=== PATIENT | female | born 1995 | race Caucasian/White ===

== ENCOUNTER 2020-01-16 01:57 | Inpatient (IN) | payer BC ==
[2020-01-16] MEDS ORDERED: Nalbuphine 10 MG/ML Syringe IVPUSH PRN (02:21)
[2020-01-16] MEDS ORDERED: Sodium Chloride 0.9% 10 ML Syringe FLUSH PRN (02:21)
[2020-01-16] MEDS ORDERED: Calcium Carbonate 500 MG Tab.Chew PO PRN (02:21)
[2020-01-16] MEDS ORDERED: Ondansetron 4 MG/2 ML SDV IVPUSH PRN (02:21)
[2020-01-16] MEDS ORDERED: Lidocaine 1% 50 ML MDV INJECT ONE (02:21)
[2020-01-16] MEDS ORDERED: Lactated Ringers 1,000 ML IV SCH (02:30)
[2020-01-16] MEDS ORDERED: Oxytocin/Lactated Ringers 10 UNIT/1,000 ML BAG IV SCH (02:30)
[2020-01-16] MEDS ORDERED: Lidocaine 1% 50 ML MDV ONE (07:06)
--- NOTE | 2020-01-16 07:16 | PCM.LDHP ---
L&D History of Present Illness - General Date of Service: 01/16/20 Admit Problem/Dx: Patient Status Order with Admit Dx/Problem 01/16/20 02:13 Patient Status [ADT] Routine 01/16/20 02:21 Patient Status [ADT] Routine Admission Diagnosis/Problem Admission Diagnosis/Problem Active labor Source of Information: Patient History Limitations: Reports: No Limitations - History of Present Illness Introduction:: Patient is a 24 y/o at 40 2/7 wks who presented early this AM in labor. When first admitted was 5 cm. Currently about 9 cm dilated. Doing well. - Related Data Allergies/Adverse Reactions: Allergies Allergy/AdvReac Type Severity Reaction Status Date / Time Latex, Natural Rubber Allergy Rash Verified 01/16/20 04:10 Home Medications: Home Meds Acetaminophen [Tylenol] 325 mg PO Q4H PRN 01/16/20 [History] Calcium Carbonate [Tums] 500 mg PO Q2HR PRN 01/16/20 [History] No122/Iron/Folic Acid [ Multi Tablet] 1 each PO DAILY 01/16/20 [History] Past Medical History HEENT History: Reports: Other (See Below) Other HEENT History: Wears glasses occasionally Respiratory History: Reports: Asthma Gastrointestinal History: Reports: [employer] History: Reports: , Spontaneous : 2 Para: 0 LMP (Approximate): Neurological History: Reports: Migraines - Past Surgical History HEENT Surgical History: Reports: Adenoidectomy, Tonsillectomy, Other (See Below) Other HEENT Surgeries/Procedures: Nasal polyp excision Social & Family History - Family History Family Medical History: Noncontributory - Tobacco Use Smoking Status *Q: Never Smoker - Alcohol Use Alcohol Use History: No - Recreational Drug Use Recreational Drug Use: No H&P Review of Systems - Review of Systems: Review Of Systems: See Below General: Reports: No Symptoms Pulmonary: Reports: No Symptoms Cardiovascular: Reports: No Symptoms Gastrointestinal: Reports: No Symptoms Genitourinary: Reports: No Symptoms Musculoskeletal: Reports: No Symptoms Psychiatric: Reports: No Symptoms Neurological: Reports: No Symptoms L&D Exam - Exam Exam: See Below - Vital Signs Vital Signs: Last Vital Signs Temp 37.0 C 01/16/20 02:13 Pulse 86 01/16/20 02:13 Resp 16 01/16/20 02:13 BP 127/78 01/16/20 02:13 Pulse Ox 100 01/16/20 02:13 Weight: 80.059 kg - OB Specific Contraction Intensity: Moderate to Strong Movement: Active Heart Tones: Present Heart Tones per Min: 130 Heart Rate (FHR) Variability: Moderate (6-25 bmp) Presentation: Vertex - Felix Score Felix Score Cervix Position: Anterior Felix Score Consistency: Soft Felix Score Effacement: >80% Felix Score Dilation: > 5 cm Felix Score 's Station: -1 ,0 Felix Score Total: 12 - Exam General: Alert, Oriented, Cooperative Lungs: Clear to Auscultation, Normal Respiratory Effort Cardiovascular: Regular Rate, Regular Rhythm GI/Abdominal Exam: Soft, Non-Tender Genitourinary: Normal external exam Skin: Warm, Dry, Intact - Patient Data Lab Results Last 24 hrs: Laboratory Results - last 24 hr 01/16/20 Range/Units 03:11 WBC 16.78 H (3.98-10.04) K/mm3 RBC 4.24 (3.98-5.22) M/mm3 Hgb 13.6 (11.2-15.7) gm/dl Hct 39.1 (34.1-44.9) % MCV 92.2 (79.4-94.8) fl MCH 32.1 (25.6-32.2) pg MCHC 34.8 (32.2-35.5) g/dl RDW Std Deviation 42.6 (36.4-46.3) fL Plt Count 185 (182-369) K/mm3 MPV 10.5 (9.4-12.3) fl Neut % (Auto) 83.6 H (34.0-71.1) % Lymph % (Auto) 10.3 L (19.3-51.7) % [place] % (Auto) 5.4 (4.7-12.5) % Eos % (Auto) 0.2 L (0.7-5.8) Baso % (Auto) 0.1 (0.1-1.2) % Neut # (Auto) 14.03 H (1.56-6.13) K/mm3 Lymph # (Auto) 1.73 (1.18-3.74) K/mm3 [place] # (Auto) 0.90 H (0.24-0.36) K/mm3 Eos # (Auto) 0.04 (0.04-0.36) K/mm3 Baso # (Auto) 0.01 (0.01-0.08) K/mm3 Result Diagrams: 01/16/20 03:11 - Problem List (1) 40 weeks gestation of SNOMED Code(s): 80279691 ICD Code: Z3A.40 - 40 WEEKS GESTATION OF Status: Acute Current Visit: Yes (2) Normal labor SNOMED Code(s): 15873623 ICD Code: O80 - ENCOUNTER FOR FULL-TERM UNCOMPLICATED DELIVERY; Z37.9 - OUTCOME OF DELIVERY, UNSPECIFIED Status: Acute Current Visit: Yes Problem List Initiated/Reviewed/Updated: Yes Orders Last 24hrs: Active Orders 24 hr Category Date Time Status Patient Status [ADT] Routine ADT 01/16/20 02:21 Active Activity as Tolerated [RC] PFP Care 01/16/20 02:21 Active Communication Order [RC] ASDIRECTED Care 01/16/20 02:21 Active Heart Tones [RC] ASDIRECTED Care 01/16/20 02:21 Active Notify Provider [RC] PFP Care 01/16/20 02:21 Active Notify Provider [RC] PRN Care 01/16/20 02:21 Active Peripheral IV Care [RC] Q2HR Care 01/16/20 02:21 Active Pump Management, Intrathecal [RC] ASDIRECTED Care 01/16/20 02:21 Active Up ad Makayla [RC] ASDIRECTED Care 01/16/20 02:14 Active Urinary Catheter Assessment [RC] ASDIRECTED Care 01/16/20 02:21 Active Regular Diet [DIET] Diet 01/16/20 Breakfast Active BLOOD BANK HOLD SPECIMEN [BBK] Stat Lab 01/16/20 02:21 Ordered RAPID PLASMA REAGIN,RPR [CHEM] Stat Lab 01/16/20 03:11 Received Calcium Carbonate [Tums] Med 01/16/20 02:21 Active 1,000 mg PO Q2H PRN Lactated Ringers [Ringers, Lactated] 1,000 ml Med 01/16/20 02:30 Active IV ASDIRECTED Nalbuphine [Nubain] Med 01/16/20 02:21 Active 10 mg IVPUSH Q2H PRN Ondansetron [Zofran] Med 01/16/20 02:21 Active 4 mg IVPUSH Q4H PRN Oxytocin/Lactated Ringers [Pitocin in LR 10 Units/1,000 Med 01/16/20 02:30 Active ML] 10 unit in 1,000 ml IV .CONTINUOUS Sodium Chloride 0.9% [Saline Flush] Med 01/16/20 02:21 Active 10 ml FLUSH ASDIRECTED PRN Electronic Heart Tones Ext w TOCO [WOMSER] Oth 01/16/20 02:21 Ordered Routine Electronic Heart Tones Internal [WOMSER] Per Unit Ot 01/16/20 02:21 Ordered Routine Peripheral IV Insertion Adult [OM.PC] Routine Oth 01/16/20 02:21 Ordered Resuscitation Status Routine Resus Stat 01/16/20 02:13 Ordered Medication Orders Calcium Carbonate/Glycine (Tums) 1,000 mg PO Q2H PRN PRN Reason: Indigestion Lactated Ringer's (Ringers, Lactated) 1,000 mls @ 100 mls/hr IV ASDIRECTED NADIRA Oxytocin/Lactated Ringer's (Pitocin In Lr 10 Units/1,000 Ml) 10 unit in 1,000 mls @ 500 mls/hr IV .CONTINUOUS NADIRA Nalbuphine HCl (Nubain) 10 mg IVPUSH Q2H PRN PRN Reason: Pain Ondansetron HCl (Zofran) 4 mg IVPUSH Q4H PRN PRN Reason: Nausea/Vomiting Sodium Chloride (Saline Flush) 10 ml FLUSH ASDIRECTED PRN PRN Reason: Keep Vein Open Assessment/Plan Comment:: * Labs previously done * GBS negative * Currently 9 cm dilated, AROM done * Plans unmedicated delivery * Anticipate
[2020-01-16] MEDS ORDERED: ePHEDrine 50 MG/ML SDV IVPUSH PRN (07:22)
[2020-01-16] MEDS ORDERED: fentaNYL 100 MCG/2 ML SDV EPIDUR PRN (07:22)
--- NOTE | 2020-01-16 07:24 | PCM.PREANE ---
Preanesthetic Assessment - Anesthesia/Transfusion/Family Hx Anesthesia History: Prior Anesthesia Without Reaction Family History of Anesthesia Reaction: No Transfusion History: No Prior Transfusion(s) Intubation History: Unknown - Review of Systems Pulmonary: No Symptoms (History of asthma) Gastrointestinal: No Symptoms (GERD) Neurological: Headache (History of migraines) - Physical Assessment NPO Status Date: 01/16/20 Vital Signs: Last Vital Signs Temp 37.0 C 01/16/20 02:13 Pulse 86 01/16/20 02:13 Resp 16 01/16/20 02:13 BP 127/78 01/16/20 02:13 Pulse Ox 100 01/16/20 02:13 Height: 1.65 m Weight: 80.059 kg ASA Class: 2 Mental Status: Alert & Oriented x3 - Lab Values: Laboratory Last Values WBC 16.78 K/mm3 (3.98-10.04) H 01/16/20 03:11 RBC 4.24 M/mm3 (3.98-5.22) 01/16/20 03:11 Hgb 13.6 gm/dl (11.2-15.7) 01/16/20 03:11 Hct 39.1 % (34.1-44.9) 01/16/20 03:11 MCV 92.2 fl (79.4-94.8) 01/16/20 03:11 MCH 32.1 pg (25.6-32.2) 01/16/20 03:11 MCHC 34.8 g/dl (32.2-35.5) 01/16/20 03:11 RDW Std Deviation 42.6 fL (36.4-46.3) 01/16/20 03:11 Plt Count 185 K/mm3 (182-369) 01/16/20 03:11 MPV 10.5 fl (9.4-12.3) 01/16/20 03:11 Neut % (Auto) 83.6 % (34.0-71.1) H 01/16/20 03:11 Lymph % (Auto) 10.3 % (19.3-51.7) L 01/16/20 03:11 [place] % (Auto) 5.4 % (4.7-12.5) 01/16/20 03:11 Eos % (Auto) 0.2 (0.7-5.8) L 01/16/20 03:11 Baso % (Auto) 0.1 % (0.1-1.2) 01/16/20 03:11 Neut # (Auto) 14.03 K/mm3 (1.56-6.13) H 01/16/20 03:11 Lymph # (Auto) 1.73 K/mm3 (1.18-3.74) 01/16/20 03:11 [place] # (Auto) 0.90 K/mm3 (0.24-0.36) H 01/16/20 03:11 Eos # (Auto) 0.04 K/mm3 (0.04-0.36) 01/16/20 03:11 Baso # (Auto) 0.01 K/mm3 (0.01-0.08) 01/16/20 03:11 Above labs reviewed and noted and within acceptable ranges to proceed with epidural if patient desires. - Allergies Allergies/Adverse Reactions: Allergies Allergy/AdvReac Type Severity Reaction Status Date / Time Latex, Natural Rubber Allergy Rash Verified 01/16/20 04:10 - Anesthesia Plan Pre-Op Medication Ordered: None - Acknowledgements Anesthesia Type Planned: Epidural Pt an Appropriate Candidate for the Planned Anesthesia: Yes Alternatives and Risks of Anesthesia Discussed w Pt/Guardian: Yes Pt/Guardian Understands and Agrees with Anesthesia Plan: Yes PreAnesthesia Questionnaire HEENT History: Reports: Other (See Below) Other HEENT History: Wears glasses occasionally Respiratory History: Reports: Asthma Gastrointestinal History: Reports: GERD, Other (See Below) Other Gastrointestinal History: Multiple food intolerances [employer]ET[employer] V[employer]IST History: Reports: , Spontaneous Neurological History: Reports: Migraines - Past Surgical History HEENT Surgical History: Reports: Adenoidectomy, Tonsillectomy, Other (See Below) Other HEENT Surgeries/Procedures: Nasal polyp excision - SUBSTANCE USE Smoking Status *Q: Never Smoker Recreational Drug Use History: No - HOME MEDS Home Medications: Home Meds Acetaminophen [Tylenol] 325 mg PO Q4H PRN 01/16/20 [History] Calcium Carbonate [Tums] 500 mg PO Q2HR PRN 01/16/20 [History] No122/Iron/Folic Acid [ Multi Tablet] 1 each PO DAILY 01/16/20 [History] - CURRENT (IN HOUSE) MEDS Current Meds: Current Medications Calcium Carbonate/Glycine (Tums) 1,000 mg PO Q2H PRN PRN Reason: Indigestion Lactated Ringer's (Ringers, Lactated) 1,000 mls @ 100 mls/hr IV ASDIRECTED NADIRA Oxytocin/Lactated Ringer's (Pitocin In Lr 10 Units/1,000 Ml) 10 unit in 1,000 mls @ 500 mls/hr IV .CONTINUOUS NADIRA Nalbuphine HCl (Nubain) 10 mg IVPUSH Q2H PRN PRN Reason: Pain Ondansetron HCl (Zofran) 4 mg IVPUSH Q4H PRN PRN Reason: Nausea/Vomiting Sodium Chloride (Saline Flush) 10 ml FLUSH ASDIRECTED PRN PRN Reason: Keep Vein Open Discontinued Medications Lidocaine HCl (Xylocaine 1%) 20 ml INJECT ONETIME ONE Stop: 01/16/20 02:22 Lidocaine HCl (Xylocaine 1%) Confirm Administered Dose 50 ml .ROUTE .K-MED ONE Stop: 01/16/20 07:07
[2020-01-16] MEDS ORDERED: Bupivacaine/fentaNYL/NS 100 ML Bag EPIDUR SCH (07:30)
--- NOTE | 2020-01-16 11:36 | PCM.DEL ---
L & D Note - General Info Date of Service: 01/16/20 - Delivery Note Labor: Spontaneous Delivery Outcome: Livebirth Delivery Method: Spontaneous Vaginal Delivery-Single Delivery Mode: Spontaneous Presentation: Right Occiput Anterior (MARII) Nuchal Cord: None Anesthesia Type: None Amniotic Fluid Description: Clear Episiotomy Type: None Laceration: 1st Degree (not bleeding and so not repaired ) Suture type: Vicryl Suture size: 2-0 Placenta: Intact, Spontaneous Cord: 3 Vessels Estimated Blood Loss: 300 Resuscitation Needed: Yes [place]: Bulb Syringe, Stimulated, Warmed, [place] Used Delivery Comments (Free Text/Narrative):: Patient found to be complete and began pushing. With maternal pushing effort head delivered from MARII presentation. No nuchal cord present. With gentle downward traction shoulders and body delivered. Cord clamped and cut. Cord blood obtained. Placenta allowed time to separate and expelled intact. Inspection of the perineum showed a shallow 1st degree laceration which was hemostatic and so not repaired - General Info Date of Service: 01/16/20 - Patient Data Vitals - Most Recent: Last Vital Signs Temp 37.0 C 01/16/20 02:13 Pulse 86 01/16/20 02:13 Resp 16 01/16/20 02:13 BP 127/78 01/16/20 02:13 Pulse Ox 100 01/16/20 02:13 Weight - Most Recent: 80.059 kg - Problem List & Annotations (1) 40 weeks gestation of SNOMED Code(s): 17615576 Code(s): Z3A.40 - 40 WEEKS GESTATION OF Status: Acute Current Visit: Yes (2) Normal labor SNOMED Code(s): 19611739 Code(s): O80 - ENCOUNTER FOR FULL-TERM UNCOMPLICATED DELIVERY; Z37.9 - OUTCOME OF DELIVERY, UNSPECIFIED Status: Acute Current Visit: Yes (3) Vaginal delivery SNOMED Code(s): 584941853 Code(s): O80 - ENCOUNTER FOR FULL-TERM UNCOMPLICATED DELIVERY Status: Acute Current Visit: Yes - Problem List Review Problem List Initiated/Reviewed/Updated: Yes - My Orders Last 24 Hours: My Active Orders 01/16/20 02:13 Resuscitation Status Routine 01/16/20 02:14 Up ad Makayla [RC] ASDIRECTED 01/16/20 02:21 Patient Status [ADT] Routine Activity as Tolerated [RC] PFP Communication Order [RC] ASDIRECTED Heart Tones [RC] ASDIRECTED Notify Provider [RC] PFP Notify Provider [RC] PRN Peripheral IV Care [RC] Q2HR Pump Management, Intrathecal [RC] ASDIRECTED Urinary Catheter Assessment [RC] ASDIRECTED BLOOD BANK HOLD SPECIMEN [BBK] Stat Calcium Carbonate [Tums] 1,000 mg PO Q2H PRN Nalbuphine [Nubain] 10 mg IVPUSH Q2H PRN Ondansetron [Zofran] 4 mg IVPUSH Q4H PRN Sodium Chloride 0.9% [Saline Flush] 10 ml FLUSH ASDIRECTED PRN Electronic Heart Tones Ext w TOCO [WOMSER] Routine Electronic Heart Tones Internal [WOMSER] Per Unit Routine Peripheral IV Insertion Adult [OM.PC] Routine 01/16/20 02:30 Lactated Ringers [Ringers, Lactated] 1,000 ml IV ASDIRECTED Oxytocin/Lactated Ringers [Pitocin in LR 10 Units/1,000 ML] 10 unit in 1,000 ml IV .CONTINUOUS 01/16/20 03:11 RAPID PLASMA REAGIN,RPR [CHEM] Stat 01/16/20 Breakfast Regular Diet [DIET] - Assessment Assessment:: PPD#0 - Plan Plan:: * Routine cares * Breast feeding * Discharge home in 1-2 days
[2020-01-16] MEDS ORDERED: Benzocaine/Menthol 20%-0.5% Spray 56 GM Canister TOP PRN (11:41)
[2020-01-16] MEDS ORDERED: Acetaminophen 325 MG Tab PO PRN (11:41)
[2020-01-16] MEDS ORDERED: Witch Hazel Medicated Pads 40/Jar TOP PRN (11:41)
[2020-01-16] MEDS: Ibuprofen 600 MG Tab PO PRN (13:37)
[2020-01-16] MEDS: Docusate Sodium 100 MG Cap PO PRN (13:38)
[2020-01-17] MEDS: Docusate Sodium 100 MG Cap PO PRN (06:19)
[2020-01-17] MEDS: Ibuprofen 600 MG Tab PO PRN ×2 (06:19→12:18)
--- NOTE | 2020-01-17 08:09 | PCM.SN.2 ---
- Free Text/Narrative Note: note: Patient is doing well in the period. Minimal lochia, voiding well, ambulated without problems. Nursing without concerns. Patient is afebrile, vital signs are stable Abdomen is flat, soft, uterus is below the umbilicus and is firm and nontender. Legs are nontender. Assessment: recovery going well. Plan: Routine care. Patient be discharged home within the next 24- 48 hours.
--- NOTE | 2020-01-17 12:19 | PCM.DCSUM1 ---
Discharge Summary - Hospital Course Free Text/Narrative:: Sheila is a 24-year-old 2 now para 1011 female who is admitted on 2019 in active labor. She progressed to complete cervical dilation and delivered a gonzalez, viable, . No significant stitches were notedwhich was done. Patient has had normal recovery. She is ambulating well, has minimal lochia, is voiding without concerns. She is desiring discharge home. Diagnosis: Stroke: No - Discharge Data Discharge Date: 01/17/20 Discharge Disposition: Home, Self-Care 01 Condition: Good - Referral to Home Health Primary Care Physician: Desire Lock MD - Patient Instructions Diet: Regular Diet as Tolerated Activity: As Tolerated (No [employer] or tampons still bleeding resolves) Driving: May Drive Today Showering/Bathing: May Shower Notify Provider of: Fever, Increased Pain, Swelling and Redness, Nausea and/or Vomiting - Discharge Plan Home Medications: Home Meds Acetaminophen [Tylenol] 325 mg PO Q4H PRN 01/16/20 [History] Calcium Carbonate [Tums] 500 mg PO Q2HR PRN 01/16/20 [History] No122/Iron/Folic Acid [ Multi Tablet] 1 each PO DAILY 01/16/20 [History] Acetaminophen [Tylenol] 650 mg PO Q4H PRN tablet 01/17/20 [Rx] Ibuprofen [Motrin] 600 mg PO Q6H PRN tablet 01/17/20 [Rx] Referrals: Desire Lock MD [Primary Care Provider] - (Patient to call [facility] for a appointment.) - Discharge Summary/Plan Comment DC Time >30 min.: No Discharge Summary/Plan Comment: Discharge instructions: 1. Discharge home 2. Diet, activity and follow-up discussed with patient. 3. Precautions given concern increased pain, bleeding, temperature, signs/ symptoms of DVT/PE. 4. Medications per home medication was printed, discussed with and given to the patient. 5. Patient is to call [facility] for appointment. Diagnosis: Term -delivered Condition: Good - Patient Data Vitals - Most Recent: Last Vital Signs Temp 36.9 C 01/17/20 08:39 Pulse 89 01/17/20 08:39 Resp 14 01/17/20 08:39 BP 98/60 01/17/20 08:39 Pulse Ox 96 01/17/20 08:39 Weight - Most Recent: 80.059 kg Lab Results - Last 24 hrs: Laboratory Results - last 24 hr 01/16/20 Range/Units 03:11 RPR Non-reactive (NONREACTIVE) Med Orders - Current: Current Medications Acetaminophen (Tylenol) 650 mg PO Q4H PRN PRN Reason: mild pain or fever Benzocaine/Menthol (Dermoplast Pain Relief [place]) 0 gm TOP ASDIRECTED PRN PRN Reason: Perineal Comfort Measure Last Admin: 01/16/20 13:37 Dose: 1 can Docusate Sodium (Colace) 100 mg PO BID PRN PRN Reason: Constipation Last Admin: 01/17/20 06:19 Dose: 100 mg Ibuprofen (Motrin) 600 mg PO Q6H PRN PRN Reason: Mild pain or fever Last Admin: 01/17/20 06:19 Dose: 600 mg Witch Rosemary (Tucks) 1 pad TOP ASDIRECTED PRN PRN Reason: Perineal Comfort Measure Last Admin: 01/16/20 13:36 Dose: 1 jar Discontinued Medications Calcium Carbonate/Glycine (Tums) 1,000 mg PO Q2H PRN PRN Reason: Indigestion Ephedrine Sulfate (Ephedrine Sulfate) 5 mg IVPUSH ASDIRECTED PRN PRN Reason: Hypotension Fentanyl (Sublimaze) 100 mcg EPIDUR Q3H PRN PRN Reason: Pain Fentanyl/Bupivacaine HCl (Fentanyl/Bupivacaine/Ns 2 Mcg-0.125% 100 Ml) 100 ml EPIDUR ASDIRECTED NADIRA Lactated Ringer's (Ringers, Lactated) 1,000 mls @ 100 mls/hr IV ASDIRECTED NADIRA Oxytocin/Lactated Ringer's (Pitocin In Lr 10 Units/1,000 Ml) 10 unit in 1,000 mls @ 500 mls/hr IV .CONTINUOUS NADIRA Last Admin: 01/16/20 11:20 Dose: 500 mls/hr Lidocaine HCl (Xylocaine 1%) 20 ml INJECT ONETIME ONE Stop: 01/16/20 02:22 Lidocaine HCl (Xylocaine 1%) Confirm Administered Dose 50 ml .ROUTE .STK-MED ONE Stop: 01/16/20 07:07 Nalbuphine HCl (Nubain) 10 mg IVPUSH Q2H PRN PRN Reason: Pain Last Admin: 01/16/20 08:00 Dose: 5 mg Ondansetron HCl (Zofran) 4 mg IVPUSH Q4H PRN PRN Reason: Nausea/Vomiting Sodium Chloride (Saline Flush) 10 ml FLUSH ASDIRECTED PRN PRN Reason: Keep Vein Open
== END 2020-01-17 14:15 | disposition home or self-care (01) | DRG 560 ==
LOC: JD.OBCHECK 01:57 → JD.OB 02:08 → JD.OBCHECK 02:21 → JD.OB 02:29 → OBSVTOIN 11:16 → JD.MS 11:26 → JD.OB 18:18
PROVIDERS: ADMIT Obstetrics & Gynecology; ATTEND Obstetrics & Gynecology
PROC: 10E0XZZ Delivery of Products of Conception, External Approach (ICD-10-PCS; principal; 2020-01-16)
PROC: 0HQ9XZZ Repair Perineum Skin, External Approach (ICD-10-PCS; 2020-01-16)
PROC: 10907ZC Drainage of Amniotic Fluid, Therapeutic from Products of Conception, Via Natural or Artificial Opening (ICD-10-PCS; 2020-01-16)
PROC: 3E0R3BZ Introduction of Anesthetic Agent into Spinal Canal, Percutaneous Approach (ICD-10-PCS; 2020-01-16)
DX: O48.0 Post-term pregnancy (principal); Z3A.40 40 weeks gestation of pregnancy; Z91.040 Latex allergy status; Z79.899 Other long term (current) drug therapy; O70.0 First degree perineal laceration during delivery; Z37.0 Single live birth
CPT/HCPCS: 36415; 59025; 59409; 85025; 86592; A9270-GY; J2300; J2590